=== PATIENT | female | born 1995 | race Caucasian/White ===

== ENCOUNTER 2022-02-01 13:00 | Emergency (ER) | payer BC, SELFPAY ==
[2022-02-01 13:05] VITALS: BP 128/91; RESP 20; TEMP 36.5; O2SAT 99; BMI 22.2
--- NOTE | 2022-02-01 13:42 | ED.GENADULT ---
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 This seems to come and go. Not really associated with anything. Not associated with eating or activity. Menstrual cycles have been fairly regular, she has not been sexually active, she does have 2 children. Patient denies weight loss chills but does feel confused at times, chills hot and cold at times, she has not had any COVID symptoms. She does report that is quite a bit of stress at her job. No leg swelling edema, bleeding or clotting problems, shortness of breath or chest pain. Related Data Home Medications Medication Instructions Recorded Confirmed citalopram PO 01/01/22 01/01/22 citalopram 20 mg tablet 20 mg PO DAILY 02/01/22 02/01/22 dextroamphetamine-amphetamine ER PO 02/01/22 10 mg 24hr capsule,extend release dextroamphetamine-amphetamine ER 20 mg PO DAILY 02/01/22 02/01/22 20 mg 24hr capsule,extend release Previous Rx's Medication Instructions Recorded albuterol sulfate 90 mcg/actuation 2 puff inhalation Q4-6H PRN 01/01/22 aerosol inhaler shortness of breath or wheezing #8.5 grams Allergies Allergy/AdvReac Type Severity Reaction Status Date / Time No Known Drug Allergies Allergy Verified 01/01/22 11:33 Review of Systems Status of ROS: Reports: 10 or more systems reviewed and unremarkable except as noted in History and below PFSH PFS Social History Smoking Status: Current some day smoker What tobacco products do you use: cigarettes Do you use any of these nicotine containing products: None Second hand tobacco smoke exposure: No How often do you have a drink containing alcohol: never How often do you have six or more drinks on one occasion: Never AUDIT-C Alcohol total score: 0 Non-prescribed substance use: denies use Exam Narrative: Exam Narrative: Objective: Patient is ambulatory without difficulty, no apparent distress, noncyanotic Vital signs unremarkable afebrile HEENT is unremarkable no facial asymmetry Pulse regular Chest abdomen unremarkable, patient has some mild tenderness to low back palpation No significant CVA tenderness Extremities are no edema, neurologic nonfocal Skin warm and dry. Const: Vital Signs, click to edit/add: Vital Signs - 24 hr 02/01/22 13:05 02/01/22 14:40 02/01/22 15:52 Temperature 97.7 F Pulse Rate [Right Pulse Oximeter] 85 78 Respiratory Rate 20 Blood Pressure [Ri ght Upper Arm] 128/91 H 116/60 105/53 L Pulse Oximetry 99 99 99 Oxygen Delivery Me thod Room Air Room Air Room Air Course Vital Signs Vital signs: Initial Vital Signs Temperature 97.7 F 02/01/22 13:05 Temperature Source Temporal Artery Scan 02/01/22 13:05 Respiratory Rate 20 02/01/22 13:05 Blood Pressure 128/91 H 02/01/22 13:05 Blood Pressure Mean 103 02/01/22 13:05 Blood Pressure Position Sitting 02/01/22 13:05 Pulse Oximetry 99 02/01/22 13:05 Oxygen Delivery Method 02/01/22 13:05 Vital Signs Temperature 97.7 F 02/01/22 13:05 Respiratory Rate 20 02/01/22 13:05 Blood Pressure 128/91 H 02/01/22 13:05 Pulse Oximetry 99 02/01/22 13:05 Oxygen Delivery Method 02/01/22 13:05 Temperature 97.7 F 02/01/22 13:05 Pulse Rate 78 02/01/22 15:52 Respiratory Rate 20 02/01/22 13:05 Blood Pressure 105/53 L 02/01/22 15:52 Pulse Oximetry 99 02/01/22 15:52 Oxygen Delivery Method 02/01/22 15:52 Medical Decision Making MDM Narrative Medical decision making narrative: Patient has a constellation of symptoms occurred certainly could be related to anxiety, but I do think that a checkup of this would be appropriate. Given she has not had any blood tests or imaging, I would do a CT scan of her abdomen pelvis, test, labs electrolytes urinalysis, EKG. Pending on labs further disposition please see addendum dictation. Addendum: The patient's serum test is positive. She thinks she had her last period about 6 weeks ago. Will get a transvaginal ultrasound to see if there is any intrauterine contents. Continues to labs, will cancel the CT scan. Addendum: The patient has estimated gestational age at about 5 and half weeks by ultrasound, gestational sac noted. Her hCG is about 3300. At this point or other labs look reassuring. I think we can discharge her home, light activity, discuss this with her primary caregiver. Tylenol for back discomfort Lab Data Labs: Lab Results 02/01/22 02/01/22 02/01/22 Range/Units 14:03 14:15 14:15 WBC 13.94 H (4.50-11.00) K/uL RBC 4.24 (4.00-5.20) m/uL Hgb 13.7 (12.0-16.0) gm/dL Hct 40.3 (33.0-51.0) % MCV 95 (80-100) fL MCH 32 (26-34) pg MCHC 34 (32-36) gm/dL RDW Coeff of Claudia 11.6 (11.5-15.5) % Plt Count 235 (140-440) K/uL Neut % (Auto) 73.0 H (42.0-72.0) % Lymph % (Auto) 19.3 L (20-44) % [place] % (Auto) 7.1 (0.0-11.0) % Eos % (Auto) 0.4 (0.0-7.0) % Baso % (Auto) 0.1 (0.0-3.0) % Neut # (Auto) 10.20 H (1.7-7.0) K/uL Lymph # (Auto) 2.70 (0.90-2.90) K/uL [place] # (Auto) 1.00 H (0.00-0.90) K/UL Eos # (Auto) 0.10 (0.00-0.50) K/uL Baso # (Auto) 0.00 (0.00-0.30) K/uL Abs Immat Gran (auto) 0.00 (0.00-0.30) K/uL Imm/Tot Granulo (auto) 0.1 % Sodium 135 (135-149) mmol/L Potassium 3.5 L (3.6-5.1) mmol/L Chloride 101 (96-114) mmol/L Carbon Dioxide 24 (20-32) mmol/L BUN 10 (5-24) mg/dL Creatinine 0.5 (0.5-1.5) mg/dL Estimated Creat Clear 181.14 Estimated GFR 131 ml/min Glucose 77 (60-115) mg/dL Calcium 8.8 (8.4-10.6) mg/dL Total Bilirubin 0.8 (0.1-1.5) mg/dL Direct Bilirubin 0.0 (0.0-0.5) mg/dL AST 24 (12-35) U/L ALT 30 (4-35) U/L Alkaline Phosphatase 74 (40-150) U/L C-Reactive Protein 4.4 H (0.5-1.0) mg/dL Total Protein 7.6 (6.0-8.3) g/dL Albumin 4.7 (3.3-5.0) g/dL Amylase 66 (18-89) U/L HCG, Qual (Negative) HCG, Quant 3131.60 mIU/mL Urine Color Mary A (Yellow) Urine Appearance Cloudy A (Clear) Urine pH 6.0 (5.0-8.5) Ur Specific [place] 1.025 (1.000-1.030) Urine Protein Trace A (Negative) Urine Glucose (UA) Negative (Negative) Urine Ketones 2+ A (Negative) Urine Blood Negative (Negative) Urine Nitrite Negative (Negative) Urine Bilirubin 1+ A (Negative) Urine Urobilinogen 1.0 (0.2-1.0) Ur Leukocyte Esterase Negative (Negative) Urine RBC 0-2 (0-2) Urine WBC 0-2 (0-5) Urine WBC Clumps None (None) Ur Squamous Epith Cells None (None-Few) Urine Bacteria Few A (None) 02/01/22 Range/Units 14:15 WBC (4.50-11.00) K/uL RBC (4.00-5.20) m/uL Hgb (12.0-16.0) gm/dL Hct (33.0-51.0) % MCV (80-100) fL MCH (26-34) pg MCHC (32-36) gm/dL RDW Coeff of Claudia (11.5-15.5) % Plt Count (140-440) K/uL Neut % (Auto) (42.0-72.0) % Lymph % (Auto) (20-44) % [place] % (Auto) (0.0-11.0) % Eos % (Auto) (0.0-7.0) % Baso % (Auto) (0.0-3.0) % Neut # (Auto) (1.7-7.0) K/uL Lymph # (Auto) (0.90-2.90) K/uL [place] # (Auto) (0.00-0.90) K/UL Eos # (Auto) (0.00-0.50) K/uL Baso # (Auto) (0.00-0.30) K/uL Abs Immat Gran (auto) (0.00-0.30) K/uL Imm/Tot Granulo (auto) % Sodium (135-149) mmol/L Potassium (3.6-5.1) mmol/L Chloride (96-114) mmol/L Carbon Dioxide (20-32) mmol/L BUN (5-24) mg/dL Creatinine (0.5-1.5) mg/dL Estimated Creat Clear Estimated GFR ml/min Glucose (60-115) mg/dL Calcium (8.4-10.6) mg/dL Total Bilirubin (0.1-1.5) mg/dL Direct Bilirubin (0.0-0.5) mg/dL AST (12-35) U/L ALT (4-35) U/L Alkaline Phosphatase (40-150) U/L C-Reactive Protein (0.5-1.0) mg/dL Total Protein (6.0-8.3) g/dL Albumin (3.3-5.0) g/dL Amylase (18-89) U/L HCG, Qual Positive (Negative) HCG, Quant mIU/mL Urine Color (Yellow) Urine Appearance (Clear) Urine pH (5.0-8.5) Ur Specific [place] (1.000-1.030) Urine Protein (Negative) Urine Glucose (UA) (Negative) Urine Ketones (Negative) Urine Blood (Negative) Urine Nitrite (Negative) Urine Bilirubin (Negative) Urine Urobilinogen (0.2-1.0) Ur Leukocyte Esterase (Negative) Urine RBC (0-2) Urine WBC (0-5) Urine WBC Clumps (None) Ur Squamous Epith Cells (None-Few) Urine Bacteria (None) Discharge Plan Discharge Clinical Impression: Abdominal pain with radiation to back, Patient Disposition: Home w/ Parent or Adult Condition: Stable Additional Instructions: Follow-up with primary care within the next couple of days to discuss her back issues as well as . Return as needed. Tylenol as needed Activity Level: Light activity Discharge Diet: Regular Prescriptions: No Action citalopram PO albuterol sulfate 90 mcg/actuation HFA aerosol inhaler 2 puff inhalation Q4-6H PRN (Reason: shortness of breath or wheezing) Qty: 8.5 0RF citalopram 20 mg tablet 20 mg PO DAILY Label Comments: Take 1 tablet by mouth once a day dextroamphetamine-amphetamine 20 mg capsule,extended release 24hr 20 mg PO DAILY Label Comments: TAKE ONE CAPSULE BY MOUTH EVERY DAY dextroamphetamine-amphetamine 10 mg capsule,extended release 24hr PO Label Comments: TAKE TWO CAPSULES BY MOUTH EVERY DAY Follow Up/Referrals: Provider,Not a Local [Primary Care Provider] - Stand Alone Forms: [facility] Info Instructions
[2022-02-01] MEDS: 0.9 % SODIUM CHLORIDE 1000 ml 1,000 ML 6000 ML IV (14:22)
[2022-02-01 14:30] LABS: Appearance Urine Cloudy (Clear); Bilirubin Urine 1+ (Negative); Blood Urine Negative (Negative); Color Urine Amber (Yellow); Glucose Urine Negative (Negative); Ketones Urine 2+ (Negative); Leukocyte Esterase Urine Negative (Negative); Nitrite Urine Negative (Negative); Protein Urine Trace (Negative); Specific Gravity Urine 1.025 (1.000-1.030)
[2022-02-01 14:33] LABS: Basophils Percent Auto 0.1 % (0.0-3.0); Eosinophils Percent Auto 0.4 % (0.0-7.0); Hematocrit 40.3 % (33.0-51.0); Hemoglobin* 13.7 gm/dL (12.0-16.0); Immature Granulocytes Pct Auto 0.1 %; Lymphocytes Percent Auto 19.3 % (20-44); Mean Corpuscular HGB Conc 34 gm/dL (32-36); Mean Corpuscular Hemoglobin 32 pg (26-34); Mean Corpuscular Volume 95 fL (80-100); Monocytes Percent Auto 7.1 % (0.0-11.0); Platelet Count* 235 K/uL (140-440); RDW Coefficient of Variation % 11.6 % (11.5-15.5); Red Blood Count 4.24 m/uL (4.00-5.20); White Blood Count* 13.94 K/uL (4.50-11.00)
[2022-02-01 14:40] VITALS: BP 116/60; PULSE 85; O2SAT 99
[2022-02-01 14:46] LABS: Slide Review Reflex No
[2022-02-01 14:50] LABS: Albumin* 4.7 g/dL (3.3-5.0); Chloride* 101 mmol/L (96-114)
[2022-02-01 14:51] LABS: Potassium* 3.5 mmol/L (3.6-5.1); Sodium* 135 mmol/L (135-149)
[2022-02-01 14:53] LABS: Amylase* 66 U/L (18-89); Creatinine* 0.5 mg/dL (0.5-1.5); Est. Creatinine Clearance* 181.14; Estimated Glomerular Filt Rate 131 ml/min
[2022-02-01 14:54] LABS: Alanine Aminotransferase* 30 U/L (4-35); Alkaline Phosphatase* 74 U/L (40-150); Aspartate Amino Transferase* 24 U/L (12-35); Bilirubin Total* 0.8 mg/dL (0.1-1.5); Blood Urea Nitrogen* 10 mg/dL (5-24); Calcium* 8.8 mg/dL (8.4-10.6); Carbon Dioxide* 24 mmol/L (20-32); Glucose* 77 mg/dL (60-115); Total Protein* 7.6 g/dL (6.0-8.3)
[2022-02-01 14:56] LABS: C Reactive Protein* 4.4 mg/dL (0.5-1.0)
[2022-02-01 15:05] LABS: Bacteria Urine Few; RBC Urine 0-2 (0-2); WBC Urine 0-2 (0-5)
[2022-02-01 15:12] LABS: HCG Qualitative Serum* Positive (Negative)
--- NOTE | 2022-02-01 15:21 | CRLHL7_ITS ---
For Patients: As a result of the Century Cures Act, medical imaging exams and procedure reports are released immediately into your electronic medical record. You may view this report before your referring provider. If you have questions, please contact your health care provider. INDICATION: Pelvic pain, new . TECHNIQUE: Ultrasound OB pelvis transabdominal and transvaginal. Real-time jiménez-scale imaging of the pelvis was performed. COMPARISON: None. FINDINGS: Anechoic structure in the endometrial canal measures approximately 6 x 5 x 9 mm, compatible with a gestational sac. This has a mean sac diameter of 6 mm, corresponding to estimated age of 5 weeks and 2 days. Normal-appearing yolk sac. No pole. The ovaries are of normal size. Right corpus luteum measures approximately 2.5 x 1.9 x 2.8 cm. No suspicious fluid collections in the cul-de-sac. IMPRESSION: Gestational sac with yolk sac. No pole is identified, suggestive of early . Recommend correlation with quantitative beta HCG. Dictated by Paulo Rivas MD @ 02/01/2022 4:32:16 PM (Electronically Signed)
[2022-02-01 15:52] VITALS: BP 105/53; PULSE 78; O2SAT 99
== END 2022-02-01 15:59 | disposition home or self-care (01) ==
PROVIDERS: Emergency Provider Family Medicine
DX: M54.50 Low back pain, unspecified (principal); Z32.01 Encounter for pregnancy test, result positive
CPT/HCPCS: 36415; 76817; 80048; 80076; 81001; 82150; 84443; 84702; 84703; 85025; 86140; 87086; 93005; 96360; 99284; J7030

== ENCOUNTER 2022-06-12 12:02 | Outpatient (CLI) | payer BC, SELFPAY | END 2022-06-12 12:03 | disposition home or self-care (01) | LOC: NFLDREF 06-13 17:14 | PROVIDERS: Visit Provider Registered Nurse | DX: M54.50 Low back pain, unspecified (principal); R53.83 Other fatigue; K52.9 Noninfective gastroenteritis and colitis, unspecified; Z20.818 Contact with and (suspected) exposure to other bacterial communicable diseases | CPT/HCPCS: 87086 ==